=== PATIENT | male | born 1990 ===

== ENCOUNTER 2018-08-27 13:44 | Emergency (ER) | payer OTHER ==
[2018-08-27 14:10] VITALS: BP 131/76; PULSE 80; RESP 18; TEMP 98.3; O2SAT 99
[2018-08-27] MEDS ORDERED: Lidocaine 1% Inj (20ml) INFIL STA (14:21)
[2018-08-27] MEDS ORDERED: Tetanus/Diphtheria Toxoids 0.5 ml Syringe IM ONE ×2 (14:21→14:56)
--- NOTE | 2018-08-27 14:24 | C.PDOC ---
History Of Present Illness 27 y/o male presents to the ED for evaluation of a splinter under his right 3rd fingernail since this morning. He reports persistent FB sensation, and notes it was a wooden splinter. Time Seen by Provider: 08/27/18 14:16 Chief Complaint (Nursing): Finger,Hand,&Wrist History Per: Patient History/Exam Limitations: no limitations Onset/Duration Of Symptoms: Hrs Current Symptoms Are (Timing): Still Present Past Medical History Reviewed: Historical Data, Nursing Documentation, Vital Signs Vital Signs: Last Vital Signs Temp 98.3 F 08/27/18 14:07 Pulse 80 08/27/18 14:07 Resp 18 08/27/18 14:07 BP 131/76 08/27/18 14:07 Pulse Ox 99 08/27/18 14:07 - Medical History PMH: No Chronic Diseases Surgical History: No Surg Hx Family History: States: Unknown Family Hx - Social History Hx Tobacco Use: No Hx Alcohol Use: No Hx Substance Use: No - Immunization History Hx Tetanus Toxoid Vaccination: No Hx Influenza Vaccination: No Review Of Systems Except As Marked, All Systems Reviewed And Found Negative. Constitutional: Negative for: Fever Gastrointestinal: Negative for: Nausea, Vomiting, Diarrhea Musculoskeletal: Positive for: Hand Pain Skin: Positive for: Other (FB under right 3rd digit nail). Negative for: Rash Neurological: Negative for: Weakness, Numbness Physical Exam - Physical Exam Appears: Non-toxic, No Acute Distress Skin: Warm, Dry, No Rash Head: Atraumatic, Normacephalic Eye(s): bilateral: Normal Inspection Neck: Normal ROM Chest: Symmetrical Respiratory: No Accessory Muscle Use, Other (NARD) Extremity: Normal ROM (full AROM of all digits), No Deformity, Other (+Linear FB extending >50% under right 3rd subungual. No hematoma or swelling) Pulses: Left Radial: Normal, Right Radial: Normal Neurological/Psych: Oriented x3, Normal Motor, Normal Sensation ED Course And Treatment O2 Sat by Pulse Oximetry: 99 (RA) Pulse Ox Interpretation: Normal Medical Decision Making Medical Decision Making: Plan: - 800 mg PO Motrin - 50 mg PO Tramadol - Tetanus booster updated - Lido ordered for procedure *see below* Disposition Counseled Patient/Family Regarding: Diagnosis, Need For Followup - Disposition Referrals: [facility] [Outside] [facility] [Outside] Disposition: HOME/ ROUTINE Disposition Time: 15:09 Condition: IMPROVED Additional Instructions: TAKE MOTRIN AND TYLENOL DIRECTED FOR PAIN. CLEAN AND CHANGE DRESSING TWICE DAILY INSTRUCTED Instructions: Foreign Body in Skin (DC) Forms: [employer] (Uruguayan), Work Excuse Print Language: YI - Clinical Impression Clinical Impression: Acute foreign body of fingernail - Scribe Statement The provider has reviewed the documentation as recorded by the Susan Charles Provider Attestation: All medical record entries made by the Susan were at my direction and personally dictated by me. I have reviewed the chart and agree that the record accurately reflects my personal performance of the history, physical exam, medical decision making, and the department course for this patient. I have also personally directed, reviewed, and agree with the discharge instructions and disposition. PROCEDURES - Foreign Body Removal Consent Obtained: verbal consent Time Out Performed: Yes Site: other (R 3 FINGER) Description of foreign body: other (SPLINTER) Sedation/Analgesia: none Technique: manual removal, removal with forceps, incision made to facilitate removal Confirmed by:: direct visualization, patient report, palpation Complications:: None Post-procedure exam: Awake, alert Neurovascular: Normal distal pulse, Normal capillary, No change from pre- procedure
[2018-08-27] MEDS ORDERED: Lidocaine Hydrochloride 5 ML INJ ONE (14:38)
[2018-08-27] MEDS ORDERED: Bacitracin 500 Units/gm Oint Foilpak UD ONE (15:25)
== END 2018-08-27 15:43 | disposition home or self-care (01) ==
LOC: C.ER 13:44
DX: S60.452A Superficial foreign body of right middle finger, initial encounter (principal); W45.8XXA Other foreign body or object entering through skin, initial encounter